=== PATIENT | male | born 1985 | race Caucasian/White ===

== ENCOUNTER 2016-08-17 15:58 | Emergency (ER) | payer BC ==
[~2016-08-17] VITALS: Wt 75.5 kg
[~2016-08-17 15:58] MED LIST: BACTDS PO; DOCU-144 PO; TRAM50TA2 PO
[2016-08-17] MEDS ORDERED: LIDOCAINE 1% (MDV) 20 ML INJ INJ STA (16:26)
[2016-08-17] MEDS ORDERED: CEPH-443 PO (16:49)
--- NOTE | 2016-08-17 16:55 | ERD ---
ER Documentation Chief Complaint Date/Time DATE: 08/17/16 TIME: 16:51 Chief Complaint TONGUE SWELLING/LACERATION X1DAY S/P FALL OFF SWING ONTO CONCRETE HPI Patient is a 31-year-old male who fell yesterday and bit his tongue and now sustained a laceration to his tongue. He has pain over his tongue is difficulty speaking otherwise he has no head or neck pain. He states he did not hit his head. ROS All systems reviewed and are negative except as per history of present illness. Medications Home Meds Active Scripts Cephalexin* (Keflex*) 500 Mg Capsule, 500 MG PO QID for 7 Days, CAP Prov:SAMUEL COOPER PA-C 08/17/16 Tramadol HCl (Tramadol HCl) 50 Mg Tablet, 50 MG PO Q4 Y for PAIN, #20 TAB Prov:CARINA NOLEN MD 11/16/15 Docusate Sodium* (Colace*) 100 Mg Capsule, 100 MG PO BID, #40 CAP Prov:CARINA NOLEN MD 11/16/15 Sulfamethoxazole-Trimethoprim* (Bactrim* DS) 800-160 Mg Tab, 1 TAB PO BID for 14 Days, TAB Prov:CARINA NOLEN MD 11/16/15 Allergies Allergies: Coded Allergies: No Known Allergy (Unverified , 04/29/12) PMhx/Soc Medical and Surgical Hx: pt denies Medical Hx, pt denies Surgical Hx Hx Alcohol Use: No Hx Substance Use: No Hx Tobacco Use: No FmHx Family History: No diabetes Physical Exam Vitals Vital Signs Date Time Temp Pulse Resp B/P Pulse Ox O2 Delivery O2 Flow Rate FiO2 08/17/16 16:08 97.6 78 18 112/69 98 Physical Exam General: well developed, well nourished, alert, nontoxic, no distress Head: normocephalic, atraumatic Eyes: PERRL, normal conjunctiva Oropharynx: no tonsilar erythema or edema, uvula midline, no exudates, no kissing tonsils, no drooling Respiratory: Clear to auscaultation bilaterally, speaks in full sentences, no use of accesory muscles or labored breathing, no rales, ronchi, or wheezing Cardiovascular: RRR, No murmurs Skin: 3 cm linear tongue laceration, it does not go through and through Results 24 hrs Current Medications Medications (Trade) Dose Ordered Sig/Soila Route PRN Reason Start Time Stop Time Status Last Admin Dose Admin Lidocaine (Xylocaine 1% (Mdv) 20 ml) 20 ml ONCE STAT INJ 08/17/16 16:26 08/17/16 16:27 DC Procedures/MDM Patient presents with tongue laceration that occurred yesterday. Both myself and Dr. Hoffmann evaluated the patient and we agree that we should suture it. It was numbed using 1% plain lidocaine and 4 simple interrupted sutures using absorbable sutures were used to close the wound. Patient tolerated the procedure well and there were no complications. He was given ENT outpatient follow-up and prescription for Keflex. Recommended this patient follow up with her primary care doctor within 48 hours or return to the emergency room for any worsening of symptoms. However this time I do believe there is suitable for outpatient management. I answered all their questions and they agreed with the plan and were discharged home. Departure Diagnosis: Primary Impression: Tongue laceration Condition: Stable Patient Instructions: Laceration, All Referrals: MARCO MILLS MD, VISHAL MD BIRNS,YONI SARABIA,AI WATTS,ELIUD Jackson MD Additional Instructions: Call your primary care doctor TOMORROW for an appointment during the next 1-2 days.See the doctor sooner or return here if your condition worsens before your appointment time. SAMUEL COOPER PA-C Aug 17, 2016 16:55
== END 2016-08-17 17:53 | disposition home or self-care (01) ==
LOC: FTE 15:58
DX: S01.512A Laceration without foreign body of oral cavity, initial encounter (principal); W09.1XXA Fall from playground swing, initial encounter; Y92.9 Unspecified place or not applicable
CPT/HCPCS: 41250; Z7502; Z7610

== ENCOUNTER 2017-03-12 12:44 | Emergency (ER) | payer BC ==
[~2017-03-12] VITALS: Ht 167.6 cm; Wt 75.6 kg
[~2017-03-12 12:44] MED LIST changes: +CEPH-443 PO
[2017-03-12 12:47] VITALS: Ht 167.6 cm; Wt 75.6 kg
[2017-03-12] MEDS ORDERED: LIDOCAINE 1% (MDV) 20 ML INJ SC ONE (13:30)
[2017-03-12] MEDS ORDERED: DIPHTH/TET/ACEL PERTUSS (ADULT) 0.5 ML VIAL IM* ONE (13:30)
--- NOTE | 2017-03-12 13:51 | RADRPT ---
PROCEDURE: XR Finger. CLINICAL INDICATION: Left thumb pain. Foreign body. TECHNIQUE: Three views. Frontal, lateral, and oblique. COMPARISON: None available FINDINGS: There is no fracture or dislocation. The soft tissues are normal. Articular surfaces are intact. There is no lytic or blastic lesion. There is no radiopaque foreign body. IMPRESSION: 1. Normal images of the left thumb. 2. No radiopaque foreign body. If there is clinical concern regarding a non-radiopaque foreign body , correlation with ultrasound of the area of interest should be considered. RPTAT: QQ .Onofre Reynolds MD, MD Date Time Electronically viewed and signed by .Onofre Reynolds MD, on 03/12/2017 13:50 .R/
[2017-03-12] MEDS ORDERED: CEPH-443 PO (14:49)
[2017-03-12] MEDS ORDERED: SULF1TAB31 PO (14:49)
--- NOTE | 2017-03-12 15:22 | ERD ---
ER Documentation Chief Complaint Chief Complaint L THUMB SPLINTER (WOOD) FROM 2 WEEKS AGO HPI 31-year-old male present ED for possible splinter in his left thumb 2 weeks. Patient was in [place] at the time. He was splitting wood and felt pain. He thought he had a splinter in his left thumb, and use a knife today again. He did not remove any splinters. Patient stated the next day his whole left hand was swollen, and he had a fever. Fever has resolved. He still has pain and swelling in his left thumb. He also has purulent drainage from the area. His fever or chills. Patient does not know whether he had a tetanus vaccination, but refused today. ROS All systems reviewed and are negative except as per history of present illness. Medications Home Meds Active Scripts Cephalexin* (Keflex*) 500 Mg Capsule, 500 MG PO QID for 5 Days, CAP Prov:JEET ZIMMERMAN NP 03/12/17 Sulfamethoxazole/Trimethoprim* (Bactrim Ds* Tablet) 1 Each Tablet, 1 TAB PO BID , #14 TAB Prov:JEET ZIMMERMAN NP 03/12/17 Cephalexin* (Keflex*) 500 Mg Capsule, 500 MG PO QID for 7 Days, CAP Prov:SAMUEL COOPER PA-C 08/17/16 Tramadol HCl (Tramadol HCl) 50 Mg Tablet, 50 MG PO Q4 Y for PAIN, #20 TAB Prov:CARINA NOLEN MD 11/16/15 Docusate Sodium* (Colace*) 100 Mg Capsule, 100 MG PO BID, #40 CAP Prov:CARINA NOLEN MD 11/16/15 Sulfamethoxazole-Trimethoprim* (Bactrim* DS) 800-160 Mg Tab, 1 TAB PO BID for 14 Days, TAB Prov:CARINA NOLEN MD 11/16/15 Allergies Allergies: Coded Allergies: No Known Allergy (Unverified , 03/12/17) PMhx/Soc Medical and Surgical Hx: pt denies Medical Hx, pt denies Surgical Hx Hx Alcohol Use: Yes Hx Substance Use: No Hx Tobacco Use: No Smoking Status: Never smoker Physical Exam Vitals Vital Signs Date Time Temp Pulse Resp B/P Pulse Ox O2 Delivery O2 Flow Rate FiO2 03/12/17 12:47 98.5 88 20 112/62 97 Physical Exam General: Well-developed, well-nourished, conscious and coherent, in no distress Skin: Warm and dry without rash, good texture and turgor Head: Normocephalic without evidence of trauma Eyes: Sclera and conjunctivae normal; pupils equal, round, and reactive to light; extraocular movements are intact Chest: Normal AP diameter. Good expansion without retractions. Nontender. Lungs are clear to auscultate bilaterally with good tidal volume Heart: Regular rate and rhythm. No murmur, rub, or gallops heard Extremities: Left thumb swollen and erythematous, tender to palpation. This is circular scab on the ventral left thumb overlying the distal phalanx. Full range of motion. Good strength bilaterally. No clubbing, cyanosis, or edema. Peripheral pulses are intact. Sensation intact Neuro: Alert and oriented 4, GCS 15. Cranial nerves grossly intact. Motor and sensory exams nonfocal. Moves all extremities. Speech clear. Gait normal Results 24 hrs Current Medications Medications (Trade) Dose Ordered Sig/Soila Route PRN Reason Start Time Stop Time Status Last Admin Dose Admin Diphtheria/ Tetanus/Acell Pertussis (Adacel) 0.5 ml ONCE ONCE IM* 03/12/17 13:30 03/12/17 13:31 DC 03/12/17 13:59 Lidocaine (Xylocaine 1% (Mdv) 20 ml) 20 ml ONCE ONCE SC 03/12/17 13:30 03/12/17 13:31 DC 03/12/17 13:59 PROCEDURE: XR Finger. CLINICAL INDICATION: Left thumb pain. Foreign body. TECHNIQUE: Three views. Frontal, lateral, and oblique. COMPARISON: None available FINDINGS: There is no fracture or dislocation. The soft tissues are normal. Articular surfaces are intact. There is no lytic or blastic lesion. There is no radiopaque foreign body. IMPRESSION: 1. Normal images of the left thumb. 2. No radiopaque foreign body. If there is clinical concern regarding a non- radiopaque foreign body, correlation with ultrasound of the area of interest should be considered. RPTAT: QQ .Carina Reynolds MD, MD Date Time Electronically viewed and signed by .Carina Reynolds MD, MD on 03/12/2017 13:50 .R/ CC: JEET ZIMMERMAN [employer] Procedures/MDM Procedure note: Incision and Drainage Verbal consent obtained for incision and drainage of patient's abscess. The area was prepped with Betadine. Lidocaine 1% was infiltrated for local anesthesia. After appropriate anesthesia, incision was made using #11 blade. Small amount of purulent discharge was drained from the abscess. The abscess was probed, no foreign bodies found. The wound was then cleaned and dressed. Patient tolerated procedure well. Well-appearing 31-year-old male present ED was abscess of his left thumb. X- rays left thumb was obtained, no radiopaque or foreign bodies noted on x-ray. The abscess is drained in the ED. Again no foreign body is found. Patient will be given antibiotics for cellulitis. I doubt osteomyelitis. Patient appears well, stable for discharge and outpatient management. Medical decision making shared with patient and family. Education provided to patient and family. Patient and family expressed understanding of the plan. Medications on discharge: Ibuprofen, Bactrim DS, Keflex. Follow-up: Primary care provider in 2-3 days or return to ED if worse. Disclaimer: Inadvertent spelling and grammatical errors are likely due to EHR/ dictation software use and do not reflect on the overall quality of patient care. Also, please note that the electronic time recorded on this note does not necessarily reflect the actual time of the patient encounter. Departure Diagnosis: Primary Impression: Abscess of thumb, left Condition: Stable Patient Instructions: Abscess, Incision And Drainage Additional Instructions: Return to this facility in 2 DAYS for a follow-up exam.Return sooner if your condition worsens. JEET ZIMMERMAN NP Mar 12, 2017 15:22
== END 2017-03-12 15:01 | disposition home or self-care (01) ==
LOC: FTE 12:44
DX: L02.512 Cutaneous abscess of left hand (principal)
CPT/HCPCS: 10060; 73140; 90715; Z7502; Z7610

== ENCOUNTER 2019-01-11 11:51 | Emergency (ER) | payer BC ==
[~2019-01-11] VITALS: Ht 167.6 cm; Wt 76.2 kg
[~2019-01-11 11:51] MED LIST changes: +ALBU8.5H8 INH; +AZIT250T PO; +BENZ-6 PO; +SULF1TAB31 PO
[2019-01-11 12:00] VITALS: BP 100/60; PULSE 76; RESP 18; Ht 167.6 cm; Wt 76.2 kg
== END 2019-01-11 15:05 | disposition home or self-care (01) ==
LOC: FTE 11:51
DX: R05 Cough (principal)
CPT/HCPCS: 71046; Z7502